=== PATIENT | male | born 1940 | race Caucasian/White ===

== ENCOUNTER → 2017-07-06 | Outpatient (CLI) | payer MEDICARE ==
[~2017-07-06] MED LIST: BUPIVACAINE MPF 0.5% 30 ML VIAL. ONE; LIDOCAINE 1% PF 30 ML VIAL. ONE
== END | disposition home or self-care (01) ==
LOC: SURG 12:01
PROVIDERS: ATTEND Anesthesiology
DX: M25.561 Pain in right knee (principal); G89.29 Other chronic pain; M19.90 Unspecified osteoarthritis, unspecified site; E10.9 Type 1 diabetes mellitus without complications
CPT/HCPCS: 64450; J2001; J3490; 77002

== ENCOUNTER → 2017-07-13 | Outpatient (CLI) | payer MEDICARE ==
[~2017-07-13] MED LIST changes: +0.9 % SODIUM CHLORIDE 10 ML VIAL ONE; +BUPIVACAINE MPF 0.25% 10 ML VIAL. ONE; -BUPIVACAINE MPF 0.5% 30 ML VIAL. ONE; +DEXAMETHASONE SOD PHOS 4 MG/ML VIAL ONE; +IOHEXOL 300 MG/ML 50 ML VIAL. ONE; +methylPREDNISolone ACETATE 80 MG/ML VIAL. ONE
== END | disposition home or self-care (01) ==
LOC: SURG 14:36
PROVIDERS: ATTEND Anesthesiology
DX: M54.16 Radiculopathy, lumbar region (principal); M19.91 Primary osteoarthritis, unspecified site; E10.9 Type 1 diabetes mellitus without complications; E07.9 Disorder of thyroid, unspecified
CPT/HCPCS: 62323; J1100; J2001; J3490; Q9967; J1040

== ENCOUNTER → 2017-08-17 | Outpatient (CLI) | payer MEDICARE ==
[~2017-08-17] MED LIST changes: -0.9 % SODIUM CHLORIDE 10 ML VIAL ONE; -DEXAMETHASONE SOD PHOS 4 MG/ML VIAL ONE; -IOHEXOL 300 MG/ML 50 ML VIAL. ONE; -methylPREDNISolone ACETATE 80 MG/ML VIAL. ONE
== END | disposition home or self-care (01) ==
LOC: SURG 14:14
PROVIDERS: ATTEND Anesthesiology
DX: M47.816 Spondylosis without myelopathy or radiculopathy, lumbar region (principal); M19.90 Unspecified osteoarthritis, unspecified site; E11.9 Type 2 diabetes mellitus without complications; E07.9 Disorder of thyroid, unspecified
CPT/HCPCS: 64493; 64494; 82947; J2001; J3490

== ENCOUNTER → 2017-09-09 | Outpatient (CLI) | payer MEDICARE | END | disposition home or self-care (01) | LOC: EDSEX → SURG 12:01 | PROVIDERS: ATTEND Anesthesiology Pain Medicine | DX: M47.816 Spondylosis without myelopathy or radiculopathy, lumbar region (principal); M54.5 Low back pain; M19.90 Unspecified osteoarthritis, unspecified site; J32.8 Other chronic sinusitis; G47.33 Obstructive sleep apnea (adult) (pediatric); J30.2 Other seasonal allergic rhinitis; E03.9 Hypothyroidism, unspecified; E10.9 Type 1 diabetes mellitus without complications; Z96.659 Presence of unspecified artificial knee joint | CPT/HCPCS: 64493; 64494; 64495; 99213; J2001; J3490; 99203; G0463 ==

== ENCOUNTER → 2017-09-21 | Outpatient (CLI) | payer MEDICARE | END | disposition home or self-care (01) | LOC: SURG 12:57 | PROVIDERS: ATTEND Anesthesiology | DX: M47.816 Spondylosis without myelopathy or radiculopathy, lumbar region (principal); E10.9 Type 1 diabetes mellitus without complications | CPT/HCPCS: 99214 ==

== ENCOUNTER → 2017-11-09 | Outpatient (CLI) | payer MEDICARE ==
[~2017-11-09] MED LIST changes: +ACYC400T PO; +ASPI81TA50 PO; +CHOL10003 PO; +CLON1TAB3 PO; +CYAN10005 PO; +DEXAMETHASONE SOD PHOS 4 MG/ML VIAL ONE; +DONE5TAB56 PO; +FISH12002 PO; +GABA-586 PO; +INSU100I13 SQ; +IV RINGERS SOLUTION,LACTATED 1,000 ML IV SCH; +LEVO50TA5 PO; +LIDOCAINE (700MG/PATCH) PATCH. ONE; +LIDOCAINE (700MG/PATCH) PATCH. TD SCH; +LISI10TA2 PO; +METF10002 PO; +MIDAZOLAM HCL PF 2 MG/2 ML VIAL. ONE; +OXYC-327 PO; +PATCH REMOVAL. MC SCH; +SERT100T PO; +SIMV40TA3 PO
[2017-11-09 09:43] VITALS: BP 115/65
== END | disposition home or self-care (01) ==
LOC: SURG 07:36
PROVIDERS: ATTEND Anesthesiology
DX: M47.816 Spondylosis without myelopathy or radiculopathy, lumbar region (principal); I10 Essential (primary) hypertension; E10.9 Type 1 diabetes mellitus without complications; G47.30 Sleep apnea, unspecified; G20 Parkinson's disease; E03.9 Hypothyroidism, unspecified; M19.90 Unspecified osteoarthritis, unspecified site; Z79.899 Other long term (current) drug therapy; Z96.651 Presence of right artificial knee joint; Z98.890 Other specified postprocedural states
CPT/HCPCS: 64635; 64636; 99152; J1100; J2001; J2250; J3010; J3490; J7120; 99204

== ENCOUNTER → 2018-04-05 | Outpatient (CLI) | payer MEDICARE ==
[2017-11-09 09:43] VITALS: BP 115/65
[~2018-04-05] MED LIST changes: -CLON1TAB3 PO; +CLON1TAB4 PO; -DEXAMETHASONE SOD PHOS 4 MG/ML VIAL ONE; +IOHEXOL 300 MG/ML 50 ML VIAL. ONE; -IV RINGERS SOLUTION,LACTATED 1,000 ML IV SCH; -LIDOCAINE (700MG/PATCH) PATCH. ONE; -LIDOCAINE (700MG/PATCH) PATCH. TD SCH; -METF10002 PO; +METF10007 PO; -MIDAZOLAM HCL PF 2 MG/2 ML VIAL. ONE; -PATCH REMOVAL. MC SCH; +methylPREDNISolone ACETATE 40 MG/ML VIAL. ONE
== END | disposition home or self-care (01) ==
LOC: SURG 12:32
PROVIDERS: ATTEND Anesthesiology
DX: M25.512 Pain in left shoulder (principal); G89.29 Other chronic pain; M47.817 Spondylosis without myelopathy or radiculopathy, lumbosacral region; G47.30 Sleep apnea, unspecified; Z72.89 Other problems related to lifestyle; G20 Parkinson's disease; E11.9 Type 2 diabetes mellitus without complications; Z98.890 Other specified postprocedural states; Z79.84 Long term (current) use of oral hypoglycemic drugs; Z79.899 Other long term (current) drug therapy; Z79.4 Long term (current) use of insulin
CPT/HCPCS: 20610; 77002; J1030; J2001; J3490; Q9967

== ENCOUNTER → 2018-05-03 | Day surgery (SDC) | payer MEDICARE ==
[~2018-05-03] MED LIST changes: -BUPIVACAINE MPF 0.25% 10 ML VIAL. ONE; +BUPIVACAINE MPF 0.5% 30 ML VIAL. ONE; +CARB1TAB2 PO; +DEXAMETHASONE SOD PHOS 4 MG/ML VIAL ONE; -IOHEXOL 300 MG/ML 50 ML VIAL. ONE; -LIDOCAINE 1% PF 30 ML VIAL. ONE; +LIDOCAINE 2% MPF 200 MG/10 ML AMPUL. ONE; +MIDAZOLAM HCL PF 2 MG/2 ML VIAL. ONE; +MODA100T2 PO; -methylPREDNISolone ACETATE 40 MG/ML VIAL. ONE
[2018-05-03 09:42] VITALS: BP 120/71
== END | disposition home or self-care (01) ==
LOC: SURG 07:53
PROVIDERS: ATTEND Anesthesiology
DX: M47.816 Spondylosis without myelopathy or radiculopathy, lumbar region (principal); E11.9 Type 2 diabetes mellitus without complications; G20 Parkinson's disease; Z79.4 Long term (current) use of insulin; Z79.899 Other long term (current) drug therapy; Z79.84 Long term (current) use of oral hypoglycemic drugs; G47.30 Sleep apnea, unspecified; Z72.89 Other problems related to lifestyle; Z96.659 Presence of unspecified artificial knee joint
CPT/HCPCS: 64635; 64636; 82947; J1100; J2001; J2250; J3010; J3490

== ENCOUNTER → 2021-11-13 | Day surgery (SDC) | payer MEDICARE ==
[~2021-11-13] MED LIST changes: +ACYC-12 PO; -ACYC400T PO; +ATOR40TA59 PO; -BUPIVACAINE MPF 0.5% 30 ML VIAL. ONE; +CARB-186 PO; -CARB1TAB2 PO; +CLON1TAB11 PO; -CLON1TAB4 PO; +CYAN-25 PO; -CYAN10005 PO; -DEXAMETHASONE SOD PHOS 4 MG/ML VIAL ONE; +IBUP400T99 PO; -LIDOCAINE 2% MPF 200 MG/10 ML AMPUL. ONE; +LISI10TA16 PO; -LISI10TA2 PO; -MIDAZOLAM HCL PF 2 MG/2 ML VIAL. ONE; -OXYC-327 PO; +OXYC1TAB19 PO; +SIMV40TA18 PO; -SIMV40TA3 PO
[2021-11-13 10:26] VITALS: BP 123/71
== END | disposition home or self-care (01) ==
LOC: SURG 10:02
PROVIDERS: ATTEND Anesthesiology
DX: M47.816 Spondylosis without myelopathy or radiculopathy, lumbar region (principal); M48.061 Spinal stenosis, lumbar region without neurogenic claudication; E78.5 Hyperlipidemia, unspecified; I10 Essential (primary) hypertension; E03.9 Hypothyroidism, unspecified; E11.9 Type 2 diabetes mellitus without complications; G47.33 Obstructive sleep apnea (adult) (pediatric); Z82.49 Family history of ischemic heart disease and other diseases of the circulatory system; Z83.3 Family history of diabetes mellitus; Z79.899 Other long term (current) drug therapy; Z79.4 Long term (current) use of insulin; Z96.651 Presence of right artificial knee joint
CPT/HCPCS: 99214; G0463

== ENCOUNTER → 2021-11-26 | Day surgery (SDC) | payer MEDICARE ==
[~2021-11-26] MED LIST changes: +BUPIVACAINE MPF 0.25% 30 ML VIAL. ONE; +LIDOCAINE 1% PF 30 ML VIAL. ONE
[2021-11-26 15:05] VITALS: BP 135/74
== END | disposition home or self-care (01) ==
LOC: SURG 14:17
PROVIDERS: ATTEND Anesthesiology
DX: M47.816 Spondylosis without myelopathy or radiculopathy, lumbar region (principal); E78.5 Hyperlipidemia, unspecified; I10 Essential (primary) hypertension; E03.9 Hypothyroidism, unspecified; M48.061 Spinal stenosis, lumbar region without neurogenic claudication; E10.9 Type 1 diabetes mellitus without complications; G47.33 Obstructive sleep apnea (adult) (pediatric); M19.90 Unspecified osteoarthritis, unspecified site; Z96.651 Presence of right artificial knee joint; Z82.49 Family history of ischemic heart disease and other diseases of the circulatory system; Z88.8 Allergy status to other drugs, medicaments and biological substances; Z83.3 Family history of diabetes mellitus; Z79.899 Other long term (current) drug therapy; Z79.4 Long term (current) use of insulin; Z79.82 Long term (current) use of aspirin
CPT/HCPCS: 64493; 64494; A4209; A4657; A4930; J3490

== ENCOUNTER → 2021-12-10 | Day surgery (SDC) | payer MEDICARE ==
[~2021-12-10] MED LIST changes: -BUPIVACAINE MPF 0.25% 30 ML VIAL. ONE; -LIDOCAINE 1% PF 30 ML VIAL. ONE
[2021-12-10 13:50] VITALS: BP 136/75
== END | disposition home or self-care (01) ==
LOC: SURG 13:34
PROVIDERS: ATTEND Anesthesiology
DX: M47.816 Spondylosis without myelopathy or radiculopathy, lumbar region (principal); M48.061 Spinal stenosis, lumbar region without neurogenic claudication; I10 Essential (primary) hypertension; E78.5 Hyperlipidemia, unspecified; E10.9 Type 1 diabetes mellitus without complications; M19.90 Unspecified osteoarthritis, unspecified site; G47.33 Obstructive sleep apnea (adult) (pediatric); E03.9 Hypothyroidism, unspecified; G89.29 Other chronic pain; Z98.890 Other specified postprocedural states; Z79.899 Other long term (current) drug therapy; Z83.3 Family history of diabetes mellitus; Z82.49 Family history of ischemic heart disease and other diseases of the circulatory system; Z79.82 Long term (current) use of aspirin; Z79.84 Long term (current) use of oral hypoglycemic drugs; Z96.651 Presence of right artificial knee joint
CPT/HCPCS: 99214; G0463

== ENCOUNTER 2021-12-31 19:10 | Emergency (ER) | payer MEDICARE ==
[~2021-12-31] VITALS: Ht 180.3 cm; Wt 104.0 kg
--- NOTE | 2021-12-31 19:23 | PHYS DOC ---
General Adult HPI: HPI: ".. I was eating Croatian fries, hamburger and a Coke... And felt like he got something stuck in the back of my mouth or throat... I was able to breathe okay but I did have some coughing... But it felt like's whether it was it was moving around to the back of my mouth and throat.. But it is gone now on and been able to drink some water maybe is still a little cough.. Patient is a 81 year old male who presents with above hx and complaints foreign body in the back of mouth and throat.. Patient still has some sensitivity to the posterior pharynx. Does appear to have a small erythemic area as if he scratched his throat. No foreign body appreciated. Patient has been able to eat since the incident and drink water. 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 History of Parkinson's, diabetes, right knee staph infection post replacement, chronic pain,. Patient has never had an EGD. Has had colonoscopy. No recent travel. No severe ill contacts. Patient is accompanied with his . Review of Systems: Review of Systems: Constitutional: Denies fever or chills Eyes: Denies change in visual acuity HENT: Denies nasal congestion or sore throat . Complains of sore throat. Respiratory: Complains of cough and sore throat Cardiovascular: Denies chest pain or edema GI: Denies abdominal pain, nausea, vomiting, bloody stools or diarrhea : Denies dysuria Musculoskeletal: Denies back pain or joint pain Integument: Denies rash Neurologic: Denies headache, focal weakness or sensory changes Endocrine: Denies polyuria or polydipsia Lymphatic: Denies swollen glands Psychiatric: Denies depression or anxiety Family History: Family History: Noncontributory to presentation Current Medications: Current Meds: See nursing for home meds Allergies: Allergies: Allergies Coded Allergies Type Severity Reaction Last Updated Verified No Known Drug Allergies 11/26/21 No Physical Exam: PE: Constitutional: Mild distress, non-toxic appearance. [] HENT: Normocephalic, atraumatic, bilateral external ears normal, oropharynx moist, no oral exudates, nose normal. Posterior pharynx has erythemic area as if abraded. Hearing aids. Eyes: PERRLA, EOMI, conjunctiva normal, no discharge. [] Neck: Normal range of motion, no tenderness, supple, no stridor. [] Cardiovascular:Heart rate regular rhythm, no murmur [] Lungs & Thorax: Bilateral breath sounds equal apex on auscultation [] Abdomen: Bowel sounds normal, soft, no tenderness, no masses, no pulsatile masses. [] Skin: Warm, dry, no erythema, no rash. [] Back: No tenderness, no CVA tenderness. [] Large excision scar right flank Extremities: No tenderness, no cyanosis, no clubbing, ROM intact, no edema. Arthritic changes. Knee scars right Neurologic: Alert and oriented X 3, moves all extremities on request, has distal sensory,, no focal deficits noted. [] Psychologic: Affect anxious, judgement normal, mood normal. [] EKG: EKG: [] Radiology/Procedures: Radiology/Procedures: [][address] [id number] IMAGING REPORT Signed PATIENT: GALO MURPHY ACCOUNT: [id number] : 1940 LOCATION: ER AGE: 81 SEX: M EXAM STATUS: REG ER ORD. PHYSICIAN: SELWYN GO MD REASON: foreign body eval- esoph/trachea PROCEDURE: NECK SOFT TISSUE EXAM: XR CHEST 2V, XR NECK SOFT TISSUE 12/31/2021 8:17 PM CLINICAL INDICATION: Foreign body, esophagus and trachea COMPARISON: None TECHNIQUE: 2 views of the neck and 2 views of the chest FINDINGS: NECK: No radiopaque foreign body. The airway is clear. No radiopaque foreign body. Epiglottis is normal. Prevertebral soft tissues normal. No acute osseous abnormality in the visualized portion of the cervical spine. There are vascular calcifications in the left carotid bulb. CHEST: The heart is normal in size. Lungs are well-expanded and clear. No pleural effusion or pneumothorax. No radiopaque foreign body. 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 IMPRESSION: No radiopaque foreign body in the neck or chest. Electronically signed by: Karen Rodriguez MD (12/31/2021 8:55 PM) [id number] DICTATED AND SIGNED BY: KAREN RODRIGUEZ MD DATE: 12/31/212053 CC: KIMBERLY NUR MD; SELWYN GO MD ~ Heart Score: C/O Chest Pain: N/A Risk Factors: Risk Factors: DM, Current or recent (<one month) smoker, HTN, HLP, family history of CAD, obesity. Risk Scores: Score 0 - 3: 2.5% MACE over next 6 weeks - Discharge Home Score 4 - 6: 20.3% MACE over next 6 weeks - Admit for Clinical Observation Score 7 - 10: 72.7% MACE over next 6 weeks - Early Invasive Strategies Course & Med Decision Making: Course & Med Decision Making Pertinent Labs and Imaging studies reviewed. (See chart for details) ". I feel fine now.. " 2111hrs. Consider follow-up EGD. If continued problems follow-up at a ER that has GI hydro station operator. Soft diet tonight. Return if any concerns. Impression: 1. Foreign body sensation posterior pharynx and throat [] Dragon Disclaimer: Dragon Disclaimer: This electronic medical record was generated, in whole or in part, using a voice recognition dictation system. Departure Departure: Referrals: KIMBERLY NUR MD (PCP) Dragon Disclaimer This chart was dictated in whole or in part using Voice Recognition software in a busy, high-work load, and often noisy Emergency Department environment. It may contain unintended and wholly unrecognized errors or omissions. Dragon Disclaimer This chart was dictated in whole or in part using Voice Recognition software in a busy, high-work load, and often noisy Emergency Department environment. It may contain unintended and wholly unrecognized errors or omissions. SELWYN GO MD December 31, 2021 19:23
[2021-12-31] MEDS ORDERED: LIDO:MAALOX 1:1 20 ML SINGLE DOSE. PO ONE (19:45)
--- NOTE | 2021-12-31 20:58 | RAD ---
EXAM: XR CHEST 2V, XR NECK SOFT TISSUE 12/31/2021 8:17 PM CLINICAL INDICATION: Foreign body, esophagus and trachea COMPARISON: None TECHNIQUE: 2 views of the neck and 2 views of the chest FINDINGS: NECK: No radiopaque foreign body. The airway is clear. No radiopaque foreign body. Epiglottis is norm al. Prevertebral soft tissues normal. No acute osseous abnormality in the visualized portion of the c ervical spine. There are vascular calcifications in the left carotid bulb. CHEST: The heart is normal in size. Lungs are well-expanded and clear. No pleural effusion or pneumot horax. No radiopaque foreign body. 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 IMPRESSION: No radiopaque foreign body in the neck or chest. Electronically signed by: Karen Rodriguez MD (12/31/2021 8:55 PM) [id number]
[2021-12-31 21:30] VITALS: BP 143/68
== END 2021-12-31 21:30 | disposition home or self-care (01) ==
LOC: ER 19:10
DX: R09.89 Other specified symptoms and signs involving the circulatory and respiratory systems (principal); J02.9 Acute pharyngitis, unspecified
CPT/HCPCS: 70360; 71046; 99284